=== PATIENT | male | born 2000 | race Caucasian/White ===

== ENCOUNTER 2023-03-24 13:12 | Inpatient (IN) | payer MEDICAID ==
[~2023-03-24] VITALS: Ht 185.4 cm; Wt 151.0 kg
[2023-03-24] MEDS ORDERED: traZODone 50mg tablet PO PRN (21:30)
[2023-03-24] MEDS ORDERED: hydrOXYzine 25 MG tablet PO PRN (21:30)
[2023-03-24 21:45] VITALS: BP 115/75; PULSE 110; RESP 16; TEMP 98.8; O2SAT 97
[2023-03-24] MEDS ORDERED: OLAN-1 PO ×2 (21:56)
[2023-03-24] MEDS ORDERED: QUET-1 PO (21:57)
[2023-03-24] MEDS ORDERED: loperamide 2mg capsule PO PRN (22:10)
[2023-03-24] MEDS ORDERED: magnesium hydroxide 30ml (MOM) UD suspension PO PRN (22:10)
[2023-03-24] MEDS ORDERED: acetaminophen 325mg tablet PO PRN ×2 (22:10)
[2023-03-24] MEDS ORDERED: mag hydrox/Alum hydrox/simeth 30ml oral suspension PO PRN (22:10)
[2023-03-24] MEDS: OLANZapine 5mg rapidly disint. tablet PO SCH (22:30)
--- NOTE | 2023-03-24 22:35 | NUR ---
SPECIAL TRACKWORK BLACKSMITH NOTE: LEGAL HOLD: 5150 for GD PROBLEM: Reported that client was barricading himself in his room, having paranoid delusions, and command hallucinations. Client is unable to perform basic self-care or plan for [facility], clothing, and food. INTERVENTIONS: Admit assessments. RESPONSE: Client arrived on the unit at 19:36 accompanied by and Jaymie Harding. Client was anxious, disorganized, and had difficulty following directions. Client was disheveled and reluctant to remove his hoodie. He took the hoodie off and put a towel over his head which he wore until falling asleep. Client showered. He denies SI/SA. At this time client is unable to provide much of a history. He reports daily cannabis use.
[2023-03-25 07:00] VITALS: RESP 18; O2SAT 99
[2023-03-25 08:00] VITALS: BP_SYST 104; BP_SYST 124; BP_DIAS 54; BP_DIAS 60; PULSE 57; PULSE 69; RESP 16; RESP 18; TEMP 96.7; TEMP 97.1; O2SAT 95; O2SAT 99
[2023-03-25 11:13] LABS: CHOL/HDL RATIO 4.3 (0.00-4.99); CHOLESTEROL 163 MG/DL (0-200); HDL CHOLESTEROL 38 MG/DL (35-60); LDL CHOLESTEROL 105 MG/DL (50-100); TRIGLYCERIDES 55 MG/DL (20-135)
[2023-03-25 11:41] LABS: HEMOGLOBIN A1C 5.3 % (4.5-6.2)
[2023-03-25] MEDS ORDERED: QUEtiapine 25mg tablet PO PRN (15:40)
--- NOTE | 2023-03-25 16:47 | NUR ---
Nursing Progress Note: Problem :Reported that client was barricading himself in his room, not eating or showering, having paranoid delusions, and command hallucinations. Client is unable to perform basic self-care or plan for fpc, clothing, and food. Per mom's report, pt was not taking his meds as ordered by his psychiatrist. Interventions :1:1 assessment, establishment of rapport, therapeutic communication, active listening, provided distraction, direction, positive reinforcement, and Q15 minute safety checks. Response : Pt was up before breakfast socializing with a couple of male peers in the hallway. Pt had his hoodie up over his head. Pt ate 100% of breakfast. Pt also ate 100% of lunch. Pt removed the hoodie and placed a blanket over his head later in the shift. Pt is polite and pleasant with staff and care though appears anxious and internally preoccupied. He also appears to be responding to internal stimuli at times. Pt would shrug his shoulder and then glance quickly upwards to the ceiling as though he saw something. Pt denied depression, SI/HI/AH/VH. Although pt was present in the milieu at times, he spent the majority of his day isolative to himself in his room. Pt's mom called and requested to ask pt to sign a consent to share information with her and for the doctor to call her. Pt agreed to sign the consent to share info with his mom. Gave Dr Barney pt's mom's phone number. Pt has new orders for Seroquel 50 mg Q6H PRN agitation MRx1, Atarax 50 mg Q6H PRN, and Trazodone 100 mg HS PRN. Plan : Pt is in need of medication adjustment and management in a safe and therapeutic environment until juan carlos. Pt lives with his parents.
[2023-03-25 19:55] VITALS: BP 121/68; PULSE 74; RESP 16; TEMP 99.3; O2SAT 94
[2023-03-25] MEDS: OLANZapine 5mg rapidly disint. tablet PO SCH (20:53)
[2023-03-25] MEDS: traZODone 50mg tablet PO PRN ×2 (20:53→22:13)
--- NOTE | 2023-03-26 05:23 | NUR ---
Nursing Progress Note: Problem :Reported that client was barricading himself in his room, not eating or showering, having paranoid delusions, and command hallucinations. Client is unable to perform basic self-care or plan for custodial, clothing, and food. Per mom's report, pt was not taking his meds as ordered by his psychiatrist. Interventions :1:1 assessment, establishment of rapport, therapeutic communication, active listening, provided distraction, direction, positive reinforcement, and Q15 minute safety checks. Response : Patient is pleasant but resistive to care; he refused HS medication but accepted PRN Trazodone. Patient Denied SI, HI, A/VH but appeared internally preoccupied and paranoid. Patient continues to walk around with a rag over his head with hoodie up. Patient appears to have difficulty keeping thoughts linear as he circles around the questions. He also was not accepting of movie writer stating "med refusal" for his med pass and stated, "you guys didn't force me to take them yesterday so it's not a med refusal." Patient participated in HS snack and watched TV with peers; observed sleeping and does not appear to be having difficulty. Plan : Pt is in need of medication adjustment and management in a safe and therapeutic environment until juan carlos. Pt lives with his parents.
[2023-03-26 07:20] VITALS: RESP 14; O2SAT 98
[2023-03-26 08:20] VITALS: BP 117/71; PULSE 71; RESP 14; TEMP 98.1; O2SAT 98
--- NOTE | 2023-03-26 14:42 | NUR ---
Nursing Progress Note: Darion Problem :Reported that client was barricading himself in his room, not eating or showering, having paranoid delusions, and command hallucinations. Client is unable to perform basic self-care or plan for snf, clothing, and food. Per mom's report, Pt was not taking his meds as ordered by his psychiatrist. Interventions :1:1 assessment, establishment of rapport, therapeutic communication, active listening, provided distraction, direction, positive reinforcement, and Q15 minute safety checks. Response : Received report from [facility] shift Nurse. Pt is pleasant and cooperative. Pt tolerated meds with no issues noted. Pt denies SI, HI, VH/AH at this time. Pt participated in community room snack and rec room with other peers watching TV. No s/s of distress at this time. Plan : Pt is in need of medication adjustment and management in a safe and therapeutic environment until juan carlos. Pt lives with his parents.
[2023-03-26] MEDS ORDERED: PALIPERIDONE 3 MG TAB.ER.24 PO ONE (16:10)
[2023-03-26 19:25] VITALS: RESP 18; O2SAT 97
[2023-03-26 20:09] VITALS: BP 114/83; PULSE 76; RESP 18; TEMP 98; O2SAT 97
[2023-03-26] MEDS: OLANZapine 5mg rapidly disint. tablet PO SCH (20:20)
[2023-03-26] MEDS ORDERED: traZODone 50mg tablet PO ONE (20:35)
--- NOTE | 2023-03-27 04:24 | NUR ---
Nursing Progress Note: Problem :Reported that client was barricading himself in his room, not eating or showering, having paranoid delusions, and command hallucinations. Client is unable to perform basic self-care or plan for longterm, clothing, and food. Per mom's report, Pt was not taking his meds as ordered by his psychiatrist. Interventions :1:1 assessment, establishment of rapport, therapeutic communication, active listening, provided distraction, direction, positive reinforcement, and Q15 minute safety checks. Response : Upon arrival to shift noted pleasantly patient sitting in dining room socializing with cohort. Noted to have black street hoodie on with dolan up and towel wrapped around head. Reports that the towel keeps him warm. A few healing red scratches to face. Hygiene fair. Appears to be open to conversation but guarded, anxious and biting nails. Refused HS Zyprexa 3rd night in a row this shift. Reports, It doesnt help me, it makes me stay awake. Trazodone helps me. Received a 1 time dose of Trazodone 100 mg. Denies SI, HI, AH or VH. No PRNs given. Will continue to monitor. Plan : Pt is in need of medication adjustment and management in a safe and therapeutic environment until juan carlos. Pt lives with his parents.
[2023-03-27 07:00] VITALS: RESP 16; O2SAT 98
[2023-03-27 08:00] VITALS: BP 113/60; PULSE 82; RESP 16; TEMP 97.5; O2SAT 98
[2023-03-27] MEDS ORDERED: PALIPERIDONE 3 MG TAB.ER.24 PO SCH (08:00)
--- NOTE | 2023-03-27 13:33 | NUR ---
5250 upheld for GD
--- NOTE | 2023-03-27 16:51 | NUR ---
Nursing Progress Note: Problem :Reported that client was barricading himself in his room, not eating or showering, having paranoid delusions, and command hallucinations. Client is unable to perform basic self-care or plan for senior care, clothing, and food. Per mom's report, Pt was not taking his meds as ordered by his psychiatrist. Interventions :1:1 assessment, medication administration and monitoring, therapeutic communication, active listening, provided distraction, direction, positive reinforcement, and Q15 minute safety checks. Response : Pt. received awake and sitting on his bed. He denies SI, HI, AH, VH and has no DC plan at this time. Pt. presents with poor eye contact often covering his eyes with a towel and hoodie on. He presents as guarded and observed rubbing his hands excessively. Pt. denies anxiety and refused needing a PRN when offered for sx of anxiety. Pt. spent most of the shift out of his room socializing and playing board games. He ate all meals in the community room and interacts appropriately. Pt. has fair hygiene, fairly groomed and wears unit scrubs and a hoodie. Pt. seen by Hospitalist today. Per Nsg. report pt. has refused his Zyprexa for past 3 nights; provider notified. Plan :Pt is in need of medication adjustment and management in a safe and therapeutic environment until juan carlos.
[2023-03-27 19:51] VITALS: BP 123/67; PULSE 76; RESP 16; TEMP 98.7; O2SAT 97
[2023-03-27] MEDS: OLANZapine 5mg rapidly disint. tablet PO SCH (21:48)
--- NOTE | 2023-03-28 04:05 | NUR ---
Nursing Progress Note: Problem: Reported that client was barricading himself in his room, not eating or showering, having paranoid delusions, and command hallucinations. Client is unable to perform basic self-care or plan for fdc, clothing, and food. Per mom's report, pt was not taking his meds as ordered by his psychiatrist. Interventions: 1:1 assessment, establishment of rapport, therapeutic communication, active listening, provided distraction, direction, positive reinforcement, and Q15 minute safety checks. Response: Patient is pleasant and cooperative with care; compliant (some hesitation noted) with medication this shift. Patient denied SI, HI, A/VH but continues to appear internally preoccupied and paranoid at times. He continues to walk the unit with a rag covering his head with his hoddie over it. Patient was more social with peers, talked on the phone with his dad and participated in HS snack prior to bed; observed sleeping and does not appear to be having difficulty. Plan: Patient continues to require interruption of current crisis with medication adjustment and management in a safe and therapeutic environment until stable. Patient lives with his parents.
[2023-03-28 07:00] VITALS: RESP 16; O2SAT 100
[2023-03-28 08:00] VITALS: BP 115/55; PULSE 71; RESP 16; TEMP 98.2; O2SAT 100
[2023-03-28 08:59] LABS: HBSAG SCREEN Negative (Negative); HEP B CORE AB, IGM Negative (Negative); HEP B CORE AB, TOT Negative (Negative)
--- NOTE | 2023-03-28 09:21 | NUR ---
Initial: Pt admit for gravely disabled d/t mental illness. Currently on a regular diet with slightly fluctuating PO intake however overall eating well, documented with average 78% PO intake of meals meeting estimated nutrient needs. Pt participating in snacks per supervisor blood. Per EMR LBM 03/26 and pt denies GI symptoms. PRN bowel care available. No nutrition intervention implemented at this time. Will continue to follow and make recommendations as appropriate. Recommendations: 1) Continue regular diet 2) Bowel care PRN 3) Weekly scaled weights Addendum: 03/28/23 at [address] Amended: Links added.
[2023-03-28] MEDS: PALIPERIDONE 3 MG TAB.ER.24 PO SCH (09:42)
--- NOTE | 2023-03-28 15:09 | NUR ---
Spoke to Darion's mother, Sarah Beth (ph# [phone]). She reported Darion is able to return home once he is stable. She reported she is happy to hear that he will get Invega Sustenna while he is here. She reported she is planning on visiting this week-end. SOCORRO Jean Baptiste
--- NOTE | 2023-03-28 16:52 | NUR ---
Nursing Progress Note: Darion Problem: Reported that client was barricading himself in his room, not eating or showering, having paranoid delusions, and command hallucinations. Client is unable to perform basic self-care or plan for group home, clothing, and food. Per mom's report, Pt was not taking his meds as ordered by his psychiatrist. Interventions :1:1 assessment, medication administration and monitoring, therapeutic communication, active listening, provided distraction, direction, positive reinforcement, and Q15 minute safety checks. Response : Pt. received awake and walking on the unit. He presents as guarded with a towel and hoodie on. Pt. denies SI, HI, AH, VH and denies anxiety. Pt. took his morning medications without hesitation. Pt. was offered a shower and was receptive initially, but when available he created numerous excuses as to why he couldnt shower. Pt. spent most of the shift in and out of common areas socializing with cohorts briefly. Pt. ate all meals with cohorts and interacts appropriately. He presents with poor hygiene, poorly groomed, and is wearing the clothes from yesterday, also looks to have picked a previous scab on his Rt. cheek. Medication increased today: Paliperidone 3mg up to 6mg, zero ASE found. Plan :Pt is in need of medication adjustment and management in a safe and therapeutic environment until juan carlos. Addendum: 03/28/23 at 1819 by Coco Carvalho LVN Pt. did take a shower at the end of this shift.
[2023-03-28 19:23] VITALS: BP 100/66; PULSE 81; RESP 16; TEMP 98; O2SAT 99
[2023-03-28] MEDS: OLANZapine 5mg rapidly disint. tablet PO SCH (21:00)
--- NOTE | 2023-03-29 03:58 | NUR ---
Nursing Progress Note: Problem: Reported that client was barricading himself in his room, not eating or showering, having paranoid delusions, and command hallucinations. Client is unable to perform basic self-care or plan for prison, clothing, and food. Per mom's report, pt was not taking his meds as ordered by his psychiatrist. Interventions: 1:1 assessment, establishment of rapport, therapeutic communication, active listening, provided distraction, direction, positive reinforcement, and Q15 minute safety checks. Response: Patient is pleasant and cooperative with care; compliant with medication without hesitation. Patient denied SI, HI, A/VH; continues to appear paranoid and possibly responding to IS. Patient was social with peers, participated in HS snack and talked on the phone with family prior to bed; observed sleeping and does not appear to be having difficulty. Plan: Patient continues to require interruption of current crisis with medication adjustment and management in a safe and therapeutic environment until stable. Patient lives with his parents.
[2023-03-29 07:00] VITALS: RESP 16; O2SAT 100
[2023-03-29 08:00] VITALS: BP 121/77; PULSE 62; RESP 16; TEMP 98; O2SAT 100
[2023-03-29] MEDS ORDERED: PALIPERIDONE 3 MG TAB.ER.24 PO SCH (08:00)
[2023-03-29] MEDS: PALIPERIDONE 3 MG TAB.ER.24 PO SCH (08:41)
--- NOTE | 2023-03-29 17:05 | NUR ---
Nursing Progress Note: Darion Problem: Reported that client was barricading himself in his room, not eating or showering, having paranoid delusions, and command hallucinations. Client is unable to perform basic self-care or plan for half-way, clothing, and food. Per mom's report, Pt was not taking his meds as ordered by his psychiatrist. Interventions :1:1 assessment, medication administration and monitoring, therapeutic communication, active listening, provided distraction, direction, positive reinforcement, and Q15 minute safety checks. Response : Pt. received awake and sitting in his room. Pt. denies SI, HI, AH, VH and reports Im feeling really good, that medicine gave me a big boost and helped me be out there pointing to community areas. Pt. denies anxiety and ate all meals in the community room with cohorts. Pt. does continues to wear a towel on his head under his hoodie today as well. Pt. presents as guarded at times, has better eye contact today. Pt. has fair hygiene, poorly groomed, and is wearing clean scrubs and a hoodie. Pt. was offered a shower today and discussed brushing his hair as his Mother reported my sons hair is long and down toward his buttocks, but he refused. Plan :Pt is in need of medication adjustment and management in a safe and therapeutic environment until juan carlos.
[2023-03-29 19:05] VITALS: BP 102/69; PULSE 89; RESP 16; TEMP 98; O2SAT 98
[2023-03-29] MEDS: OLANZapine 5mg rapidly disint. tablet PO SCH (20:56)
--- NOTE | 2023-03-30 03:03 | NUR ---
Nursing Progress Note: Problem: Reported that client was barricading himself in his room, not eating or showering, having paranoid delusions, and command hallucinations. Client is unable to perform basic self-care or plan for nursing home, clothing, and food. Per mom's report, pt was not taking his meds as ordered by his psychiatrist. Interventions: 1:1 assessment, establishment of rapport, therapeutic communication, active listening, provided distraction, direction, positive reinforcement, and Q15 minute safety checks. Response: Patient is pleasant and cooperative with care; compliant with medication. Patient denied SI, HI, A/VH; no apparent delusions expressed but continues to walk around with a rag on top of his head under his hoddie. Patient is social, talked on the phone and participated in HS snack prior to bed; observed sleeping and does not appear to be having difficulty. Plan: Patient continues to require interruption of current crisis with medication adjustment and management in a safe and therapeutic environment until stable. Patient lives with his parents.
[2023-03-30 07:00] VITALS: RESP 14; O2SAT 100
[2023-03-30] MEDS ORDERED: paliperidone palmitate inj 234 MG/1.5 ML SYRINGE IM ONE (07:45)
[2023-03-30 08:00] VITALS: BP 105/55; PULSE 55; RESP 14; TEMP 98.1; O2SAT 100
[2023-03-30] MEDS: PALIPERIDONE 3 MG TAB.ER.24 PO SCH (08:57)
--- NOTE | 2023-03-30 15:11 | NUR ---
Nursing Progress Note: Problem : Reported that client was barricading himself in his room, not eating or showering, having paranoid delusions, and command hallucinations. Client is unable to perform basic self-care or plan for jail, clothing, and food. Per mom's report, Pt was not taking his meds as ordered by his psychiatrist. Interventions : Introduced self and established rapport, maintained a safe and supportive environment, ensured contract for safety, provided clear and simple instructions, encouraged participation on the unit, and maintained Q 15 min safety checks. Response : Received pt. sleeping in bed at the beginning of the shift, he awoke and attended breakfast in the Group Room. Afterwards, pt. retreated back to his room, and is observed to be wearing a towel on his head with a hoodie pulled over it, which he continued to wear throughout the shift. This internal communications writer introduced herself, and administered pt's ordered Invega Sustenna injection in his left deltoid, he tolerated this well. Pt's aunt visited during visiting hours, and per pt's request she took all of his marijuana paraphernalia which had been stored in his locker home with her. 1:1 was completed later at bedside, pt. presents as cooperative, guarded, and withdrawn. He denies any S/I, H/I, A/V/BEATTY, and no delusional statements were made. Pt. was filling out a writ of habeas corpus to contest his mental health hold. This internal communications writer questioned pt. regarding his plan for jail and pt. stated, "I have people I can travel around and stay with." When further questioned regarding his plans for food and clothing, pt. stated in an uncertain manner, "I have ways I can get all that I think." He did no elaborate. Pt. continues to require some direction and encouragement to independently perform his ADLs. Plan : Pt. continues to require a safe and supportive environment and medication adjustments.
[2023-03-30 19:30] VITALS: RESP 16; O2SAT 98
[2023-03-30 20:30] VITALS: BP 120/74; PULSE 69; RESP 16; TEMP 99.4; O2SAT 98
--- NOTE | 2023-03-31 01:35 | NUR ---
Nursing Progress Note:Darion Problem : Reported that client was barricading himself in his room, not eating or showering, having paranoid delusions, and command hallucinations. Client is unable to perform basic self-care or plan for [facility], clothing, and food. Per mom's report, Pt was not taking his meds as ordered by his psychiatrist. Interventions : Introduced self and established rapport, maintained a safe and supportive environment, ensured contract for safety, provided clear and simple instructions, encouraged participation on the unit, and maintained Q 15 min safety checks. Response : Received report from AM shift. Pt pacing hallway beginning of shift. Pt pleasant and cooperative. Pt tolerated meds with no issues noted. Pt is guarded and withdrawn. He denies any S/I, H/I, A/V/BEATTY, and no delusional statements were made. Pt reported med helps, Pt stated he does not have those feelings, he can feel the difference. Pt appears appreciative to have staff checking on him. Pt showered this evening. No s/s of distress at this time. Plan : Pt. continues to require a safe and supportive environment and medication adjustments.
[2023-03-31 07:00] VITALS: RESP 16; O2SAT 100
[2023-03-31 08:00] VITALS: BP 108/66; PULSE 60; RESP 16; TEMP 97.5; O2SAT 100
[2023-03-31] MEDS: PALIPERIDONE 3 MG TAB.ER.24 PO SCH (08:19)
--- NOTE | 2023-03-31 16:46 | NUR ---
Nursing Progress Note: Problem : Reported that client was barricading himself in his room, not eating or showering, having paranoid delusions, and command hallucinations. Client is unable to perform basic self-care or plan for [facility], clothing, and food. Per mom's report, Pt was not taking his meds as ordered by his psychiatrist. Interventions : Introduced self and established rapport, maintained a safe and supportive environment, ensured contract for safety, provided clear and simple instructions, encouraged participation on the unit, and maintained Q 15 min safety checks. Response : Received pt. sleeping in bed at the beginning of the shift, he awoke and attended breakfast in the Group Room. Afterwards, pt. retreated back to his room as is his routine, he continued to remain withdrawn here throughout much of the day. Pt. was again observed to be wearing a towel on his head with a hoodie pulled over it, he appears somewhat anxious as evidenced by staring intently at this leader writer with wide eyes during conversation. Pt. continues to present as guarded with conversation and denies all mental lucita s/s. He does endorse that he is looking forward to discharge and is hoping to leave after his next Invega injection. Pt. also endorses that he likes his medication and states, "I feel better than I did," he does not elaborate. He appears to have a difficult time expressing his thoughts. Pt. continues to require some direction and encouragement to independently perform his ADLs. Plan : Pt. continues to require a safe and supportive environment.
[2023-03-31 19:30] VITALS: RESP 16; O2SAT 98
[2023-03-31 20:45] VITALS: BP 111/66; PULSE 76; RESP 16; TEMP 98.4; O2SAT 98
--- NOTE | 2023-04-01 03:38 | NUR ---
Nursing Progress Note: Darion Problem : Reported that client was barricading himself in his room, not eating or showering, having paranoid delusions, and command hallucinations. Client is unable to perform basic self-care or plan for group home, clothing, and food. Per mom's report, Pt was not taking his meds as ordered by his psychiatrist. Interventions : Introduced self and established rapport, maintained a safe and supportive environment, ensured contract for safety, provided clear and simple instructions, encouraged participation on the unit, and maintained Q 15 min safety checks. Response : Received report from AM shift. Pt eating dinner in community room. Pt is pleasant and cooperative. Pt took meds with no issues noted. Pt denies SI, HI, VH/AH at this time. Pt is sociable with peers and staff. Pt participate in snack and spent most the time in community watching TV. Pt is open to conversation with this ad writer. Pt reported giving some of the food on his tray away for another peer. Pt was positive during 1:1 assessment. Pt smiling a lot this shift. Pt reported after discharge he has plans to go stay with his family and friends. Pt reported he tries to shower every other day. Pt stated he hope all the nurses and staff likes him and he is nice to them. Pt reported medication making him feel better. Plan : Pt. continues to require a safe and supportive environment.
[2023-04-01 07:00] VITALS: RESP 16; O2SAT 98
[2023-04-01 08:00] VITALS: BP 128/74; PULSE 63; RESP 16; TEMP 97.8; O2SAT 98
[2023-04-01] MEDS: PALIPERIDONE 3 MG TAB.ER.24 PO SCH (08:35)
--- NOTE | 2023-04-01 16:53 | NUR ---
Nursing Progress Note: Darion Problem : Reported that client was barricading himself in his room, not eating or showering, having paranoid delusions, and command hallucinations. Client is unable to perform basic self-care or plan for jail, clothing, and food. Per mom's report, Pt was not taking his meds as ordered by his psychiatrist. Interventions : Introduced self and established rapport, maintained a safe and supportive environment, ensured contract for safety, provided clear and simple instructions, encouraged participation on the unit, and maintained Q 15 min safety checks. Response : Received pt. sleeping in bed and in no distress at the beginning of the shift. Pt woke and was cooperative with vitals and returned to sleep. Pt woke for breakfast and ate well. He took his AM invega w/o issue. Pt is polite, guarded and pleasant. He appears nervous and awkward in conversation and denies having any mental health issues. Pt looking forward to discharge after next Invega Sustenna Inj. He continues to need prompting to perform ADLs and defaults to his room and isolating. He did talk with another Pt in hallway intermittently and asked radio script writer for a pair of his sweats that he states are in his bleongings. Pt appreciative of care and polite. Plan : Pt. continues to require a safe and supportive environment.
[2023-04-01 20:00] VITALS: BP 130/66; PULSE 77; RESP 18; TEMP 98.5; O2SAT 98
--- NOTE | 2023-04-02 03:21 | NUR ---
Nursing Progress Note: Problem: Reported that client was barricading himself in his room, not eating or showering, having paranoid delusions, and command hallucinations. Client is unable to perform basic self-care or plan for residential, clothing, and food. Per mom's report, Pt was not taking his meds as ordered by his psychiatrist. Interventions: Introduced self and established rapport, maintained a safe and supportive environment, ensured contract for safety, provided clear and simple instructions, encouraged participation on the unit, and maintained Q 15 min safety checks. Response: upon entering shift patient was seen in TV room watching TV and socializing with peers. During 1:1, patient seems to have made progress and is more talkative and less guarded. Patient states he is doing a lot better now. Patient ate all meals in TV room with peers. Patient has no complaints. Patient states he sleeps well and gets all long with roommate. Patient denies any hallucinations, voices, and bad thoughts. Patient woke up around 0200, asking for a snack. Snack was given and patient went back to bed. Plan: Pt. continues to require a safe and supportive environment.
[2023-04-02 07:50] VITALS: RESP 16; O2SAT 100
[2023-04-02 08:00] VITALS: BP 136/74; PULSE 76; RESP 16; TEMP 98.5; O2SAT 100
[2023-04-02] MEDS: PALIPERIDONE 3 MG TAB.ER.24 PO SCH ×2 (08:00→08:26)
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
[2023-04-02 20:00] VITALS: BP 102/65; PULSE 89; RESP 16; TEMP 98.8; O2SAT 97
--- NOTE | 2023-04-03 03:29 | NUR ---
Nursing Progress Note: Darion Problem: Reported that client was barricading himself in his room, not eating or showering, having paranoid delusions, and command hallucinations. Client is unable to perform basic self-care or plan for alf, clothing, and food. Per mom's report, Pt was not taking his meds as ordered by his psychiatrist. Interventions: Introduced self and established rapport, maintained a safe and supportive environment, ensured contract for safety, provided clear and simple instructions, encouraged participation on the unit, and maintained Q 15 min safety checks. Response: Upon shift patient was observed wondering halls and socializing with peers and staff. During 1:1, patient seemed to be coming out of shell and talked more than usual. Patient seemed to be very happy that his parents came to see him. Patient says he is wanting to go home. Patient does still seem to worry about what other people think making comments like is it weird if I pace the hallways? Would people think thats weird? patient made comments about tech stating that scout is really awesome, it was very nice talking to him! patient participated in HS snack and enjoyed a slice or two of pizza, commenting the pizza was great! patient seemed very thankful. Patient does not have a bed time medication regimen. Patient currently in bed with eyes closed and lying on left side. Plan: Pt. continues to require a safe and supportive environment.
[2023-04-03 07:00] VITALS: RESP 16; O2SAT 98
[2023-04-03 08:00] VITALS: BP 106/65; PULSE 62; RESP 16; TEMP 97; O2SAT 98
[2023-04-03] MEDS ORDERED: PALIPERIDONE 3 MG TAB.ER.24 PO SCH (08:00)
--- NOTE | 2023-04-03 13:23 | NUR ---
DISCHARGE PLAN Darion is going to discharge tomorrow (04/04/23). His parents are going to pick him up between 6-7 PM. He has follow up scheduled with his psychiatrist in [place]. SOCORRO Jean Baptiste
--- NOTE | 2023-04-03 16:18 | NUR ---
Nursing Progress Note: Darion Problem: Reported that client was barricading himself in his room, not eating or showering, having paranoid delusions, and command hallucinations. Client is unable to perform basic self-care or plan for group home, clothing, and food. Per mom's report, Pt was not taking his meds as ordered by his psychiatrist. Interventions :1:1 assessment, medication administration and monitoring, therapeutic communication, active listening, provided distraction, direction, positive reinforcement, and Q15 minute safety checks. Response: Pt. received awake and standing in his room. Pt. presents with poor eye contact, pleasant, and cooperative. He denies SI, HI, AH, VH and reports Im doing allot better, I feel like talking to others. Pt. spent most of the morning out in community areas with cohorts. He attended all snacks offered, he reports LBM was 2 days ago, but denies constipation. Pt. ate all meals in the dining area and interacts well with others. Pt. took his medications without hesitation and is receptive to [id number] to this insurance writer. Pt. found to be wearing a towel under his hoodie which was also seen several days ago as well, hygiene has improved, and is wearing clean street clothes. Plan :Pt is in need of medication adjustment and management in a safe and therapeutic environment until juan carlos.
[2023-04-03 18:54] VITALS: RESP 16; O2SAT 98
[2023-04-03 20:00] VITALS: BP 114/66; PULSE 82; RESP 16; TEMP 97.5; O2SAT 98
--- NOTE | 2023-04-04 04:11 | NUR ---
Nursing Progress Note: Problem: Reported that client was barricading himself in his room, not eating or showering, having paranoid delusions, and command hallucinations. Client is unable to perform basic self-care or plan for [facility], clothing, and food. Per mom's report, Pt was not taking his meds as ordered by his psychiatrist. Interventions :1:1 assessment, medication administration and monitoring, therapeutic communication, active listening, provided distraction, direction, positive reinforcement, and Q15 minute safety checks. Response: Upon arrival to shift noted patient walking the halls with dirty black hoodie with dolan pulled over head and towel draped on head. Minimal eye contact, sheepishly answering questions. Thoughts/speech linear. Pleasant and cooperative. Smiles during conversation. Reports that he possibly gets to discharge tomorrow back home. Per Dr. Guadarrama note says 'I will discontinue it tomorrow he will also receive a secondary dose of Invega Sustenna 156 mg IM, if he tolerates this dose that he will be discharged tomorrow to his [facility] house.' Denies SI, HI, AH and VH. States, Im feeling clear minded and positive. No HS meds or PRNs given. Slept well through the night. Will continue to monitor. Plan :Pt is in need of medication adjustment and management in a safe and therapeutic environment until juan carlos.
[2023-04-04] MEDS ORDERED: paliperidone palmitate 156 mg/ml inj.**IM only IM ONE (06:50)
[2023-04-04 07:00] VITALS: RESP 16; O2SAT 98
[2023-04-04 08:00] VITALS: BP 103/68; PULSE 71; RESP 16; TEMP 97.6; O2SAT 98
--- NOTE | 2023-04-04 09:52 | NUR ---
Initial: Pt admit for gravely disabled d/t mental illness. Currently on a regular diet with slightly fluctuating PO intake however overall eating well, documented with average 78% PO intake of meals meeting estimated nutrient needs. Pt participating in snacks per dull coat mill operator. Per EMR LBM 03/26 and pt denies GI symptoms. PRN bowel care available. No nutrition intervention implemented at this time. Will continue to follow and make recommendations as appropriate. Recommendations: 1) Continue regular diet 2) Bowel care PRN 3) Weekly scaled weights Addendum: 04/04/23 at [address] Amended: Links added.
--- NOTE | 2023-04-04 15:35 | NUR ---
Nursing Progress Note: Darion Problem: Reported that client was barricading himself in his room, not eating or showering, having paranoid delusions, and command hallucinations. Client is unable to perform basic self-care or plan for snf, clothing, and food. Per mom's report, Pt was not taking his meds as ordered by his psychiatrist. Interventions :1:1 assessment, medication administration and monitoring, therapeutic communication, active listening, provided distraction, direction, positive reinforcement, and Q15 minute safety checks. Response: Pt. received awake and sitting in community area. Pt. denies SI, HI, AH, VH and reports his DC plan is to return to [place] Pt. presents with fair eye contact, speaks in a low tone, and hides his face in the hoodie he wears consistently. Pt. is cooperative, very pleasant, and laughs intermittently. Pt. received N.O Invega [place] to Rt. Deltoid with zero ASE found. Pt. spent most of the shift out in community areas with cohorts and was observed conversing at times. Pt. ate all meals in the dining area, but keeps his dolan on along with a towel. Pt. hygiene is fair, hair remains to be seen, but appears unbrushed, and is wearing street clothes. Pt. expected DC today at 1830 Plan: DC today at 1830.
[2023-04-04] MEDS ORDERED: HYDR-3686 PO (18:02)
[2023-04-04] MEDS ORDERED: PALI234D IM (18:02)
[2023-04-04 19:00] VITALS: BP 114/73; PULSE 94; RESP 16; TEMP 98.5; O2SAT 97
[2023-04-04 19:39] VITALS: RESP 16; O2SAT 98
--- NOTE | 2023-04-04 19:44 | NUR ---
All written and verbal instructions provided to patient. All questions answered. Pt belongings list reviewed and pt verified all belongings were accounted for except marijuana bag. Marijuana bag per inventory notation was disposed of. Pt was provided security bag tag and encouraged to retrieve, if still available, from admission by picking up red phone at hospital exit. Pt declined to call for marijuana bag. Pt will be following up with Psychiatrist as per appointment. Pt provided with community resources for mental health and emergency suicide resources. Pt trained on how to follow up with emergency resources if symptoms worsen. Pt was receptive to learning. Pt will be following up with [employer] prohibition hearing by following web site as per paperwork instructions. Pt ambulated to [facility] via x 1 cyber security manager escort. Pt family awaiting patient. He left 1930hrs in his parent's vehicle. Addendum: 04/04/23 at 1950 by [employer] LVN, LVN Amended: Links added.
== END 2023-04-04 19:30 | disposition home or self-care (01) | DRG 753 ==
LOC: ADULT MH 19:34
PROVIDERS: ADMIT Psychiatry & Neurology Psychiatry; ATTEND Psychiatry & Neurology Psychiatry
DX: F31.9 Bipolar disorder, unspecified (principal); F12.10 Cannabis abuse, uncomplicated; F23 Brief psychotic disorder; F17.210 Nicotine dependence, cigarettes, uncomplicated; F41.9 Anxiety disorder, unspecified; Z79.899 Other long term (current) drug therapy
CPT/HCPCS: 36415; 80061; 83036; 86704; 86705; 87081; 87340; J2426